=== PATIENT | female | born 2000 | race Asian ===

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

== ENCOUNTER 2023-09-11 00:07 | Inpatient (IN) | payer BC, OTHER ==
[2023-09-11] MEDS ORDERED: CARBOPROST TROMETHAMINE 250 MCG/ML 1 ML AMP IM PRN (01:28)
[2023-09-11] MEDS ORDERED: miSOPROStoL 200 MCG TAB PO PRN (01:28)
[2023-09-11] MEDS ORDERED: LIDOCAINE 0.5% (PF) 5 MG/ML (50 ML SDV) SQ PRN (01:28)
[2023-09-11] MEDS ORDERED: TERBUTALINE 1 MG/ML VIAL SQ PRN (01:28)
[2023-09-11] MEDS ORDERED: TRANEXAMIC 1,000 MG/100ML-NACL 1,000 MG in EMPTY BAG 1 BAG IV PRN (01:28)
[2023-09-11] MEDS ORDERED: OXYTOCIN 10 UNIT/ML 1 ML VIAL IM PRN (01:28)
[2023-09-11] MEDS ORDERED: NALBUPHINE 10 MG/ML (10 ML MDV) IV PRN (01:31)
[2023-09-11 01:46] LABS: Basophils % (A) 1 %; Eosinophils % (A) 1 %; HCT 33.5 % (34.0-46.0); Hypochromasia Slight; Lymphocytes # (A) 1.4 k/uL (1.0-4.8); Lymphocytes % (A) 29 %; MCH 25.1 pg (25.0-35.0); MCHC 32.8 g/dL (31.0-37.0); MCV 76.5 fL (80.0-100.0); Mean Platelet Volume 8.5; Microcytosis Slight; Monocytes # (A) 0.5 k/uL (0-1.0); Monocytes % (A) 10 %; Neutrophils # (A) 2.6 k/uL (1.3-7.7); Neutrophils % (A) 56 %; Platelet Count 231 k/uL (150-450); RBC 4.38 m/uL (3.80-5.40); WBC 4.6 k/uL (3.8-10.6)
[2023-09-11] MEDS: LACTATED RINGERS 1,000 ML IV SCH (01:54)
[2023-09-11] MEDS: AMPICILLIN 2,000 MG in SODIUM CHLORIDE 0.9% 100 ML IVPB ONE (02:04)
[2023-09-11 04:06] LABS: Amphetamine Screen,Urine Not Detected (NotDetected); Barbiturate Screen,Urine Not Detected (NotDetected); Benzodiazepines Screen,Urine Not Detected (NotDetected); Cocaine Screen,Urine Not Detected (NotDetected); Methadone Screen, Urine Not Detected (NotDetected); Opiate Screen,Urine Not Detected (NotDetected); Oxycodone Screen, Urine Not Detected (NotDetected); Phencyclidine Screen,Urine Not Detected (NotDetected); Tricyclic Antidepressant,Urine Not Detected (NotDetected); Urn Cannabinoid Scrn Detected (NotDetected)
[2023-09-11] MEDS: AMPICILLIN 1,000 MG in SODIUM CHLORIDE 0.9% 50 ML IVPB SCH (05:56)
[2023-09-11] MEDS: OXYTOCIN 30 UNITS/500 ML NS 30 UNIT in SALINE 1 500ML.BAG IV SCH (08:30)
[2023-09-11] MEDS ORDERED: LANOLIN CREAM 1 GM TUBE TOPICAL PRN (12:27)
[2023-09-11] MEDS ORDERED: diphenhydrAMINE 25 MG CAP PO PRN (12:27)
[2023-09-11] MEDS ORDERED: HYDROCORTISONE 2.5% RECTAL CREAM 30 GM TUBE RECTAL PRN (12:27)
[2023-09-11] MEDS ORDERED: diphenhydrAMINE 50 MG CAP PO PRN (12:27)
[2023-09-11] MEDS ORDERED: SIMETHICONE 80 MG CHEWABLE PO PRN (12:27)
[2023-09-11] MEDS ORDERED: diphenhydrAMINE 50 MG/ML 1 ML VIAL IVP PRN ×2 (12:27)
[2023-09-11] MEDS ORDERED: ZOLPIDEM 5 MG TAB PO PRN (12:27)
[2023-09-11] MEDS: METHYLERGONOVINE 0.2 MG/ML 1 ML AMP IM PRN (12:36)
[2023-09-11] MEDS: BENZOCAINE/MENTHOL SPRAY 1 GM/SPRAY AEROSOL TOPICAL PRN (12:36)
[2023-09-11] MEDS: IBUPROFEN 600 MG TAB PO SCH (15:46)
[2023-09-11] MEDS: ROPIVACAINE 225 MG, fentaNYL (PF). 450 MCG in SODIUM CHLORIDE 0.9% 171 ML EPIDURAL ONE (17:28)
--- NOTE | 2023-09-11 20:19 | P.PROBDLV ---
Vaginal Delivery Note - . Vaginal Delivery Note: Findings: Viable female delivered at 1213, weight of 6 pounds 10 ounces. This is a 23-year-old 1 para 0 that presented to labor and delivery last evening with complaints of regular painful contractions. Patient has an estimated due date of 09/19/2023, gestational age of 38-6/7 weeks. Patient was noted to be charu every 3 minutes and was uncomfortable with contractions. Patient stated contractions got worse through the day therefore she presented to the hospital. Patient was admitted to labor and delivery with expectant management. Patient had been receiving routine care which had been complicated by diagnosis of lupus. Patient did see maternal- medicine which recommended delivery at 39 weeks. Patient progressed to the night eventually becoming uncomfortable and requesting epidural. Epidural was placed without difficulty by the anesthesia department this morning. Patient progressed toward complete began pushing and had a normal spontaneous vaginal delivery of a viable female infant at 1213, weight of 6 pounds 10 ounces, Apgars of 9 and 9 at 1 and 5 minutes respectively. was delivered through a loose body cord. After 2-minute delay the umbilical cord was doubly clamped and cut. The was placed on the maternal abdomen. Cord blood was then taken. The placenta was delivered spontaneously intact with a three-vessel cord being noted. A large gush of bleeding was noted therefore Methergine was given the uterus firmed. The bladder was drained of clear yellow urine. On inspection the patient's vaginal vault first-degree vaginal laceration was appreciated. This was repaired in the usual fashion with 3-0 Rapide in a [id number] fashion. All counts were noted to be correct x 2 at the end of the delivery. Patient and tolerated delivery well and are resting comfortably.
[2023-09-11] MEDS: ACETAMINOPHEN TAB 325 MG TAB PO PRN (20:23)
[2023-09-11] MEDS: SENNOSIDES-DOCUSATE SODIUM 1 EACH TAB PO SCH (21:09)
--- NOTE | 2023-09-12 08:57 | P.PNOBGVD ---
Subjective - Subjective Principal diagnosis: day #1 Interval history: Patient is doing well . She is ambulating and voiding without difficulty. She is tolerating a regular diet without nausea or vomiting. States her lochia is minimal. She is breast-feeding with some difficulty. Patient reports: Reports appetite normal, Reports voiding normally, Reports pain well controlled, Reports ambulating normally : doing well, nursing well Objective - Latest Vital Signs Latest vital signs: Vital Signs Temp Pulse Resp BP Pulse Ox 09/12/23 04:17 98.5 F 73 16 109/70 97 09/12/23 00:00 98.7 F 77 16 116/81 98 09/11/23 20:00 98.0 F 77 16 128/89 98 09/11/23 15:04 97.2 F L 81 16 130/79 09/11/23 14:27 66 16 128/71 09/11/23 14:12 76 16 121/56 09/11/23 13:57 77 16 123/84 09/11/23 13:42 75 16 144/65 09/11/23 13:27 78 16 143/63 09/11/23 13:12 107 H 16 130/90 09/11/23 12:57 85 16 126/84 09/11/23 12:42 94 16 136/56 09/11/23 12:27 97.3 F L 94 16 120/68 Intake and Output 09/11/23 09/12/23 09/12/23 22:59 06:59 14:59 Intake Total 600 Output Total 190 Balance -190 600 Intake: Oral 600 Output: Output, Quantitative 190 Blood Loss Other: # Voids 1 1 - Exam Extremities: Present: normal, edema Abdomen: Present: normal appearance, soft Uterus: Present: normal, firm Assessment and Plan (1) Term Current Visit: Yes Status: Acute Code(s): Z34.90 - ENCNTR FOR SUPRVSN OF NORMAL , UNSP, UNSP TRIMESTER SNOMED Code(s): 06358515 (2) Lupus Current Visit: Yes Status: Acute Code(s): M32.9 - SYSTEMIC LUPUS ERYTHEMATOSUS, UNSPECIFIED SNOMED Code(s): 937635355 (3) Status post normal vaginal delivery Current Visit: Yes Status: Acute Code(s): VGI1588 - SNOMED Code(s): 343590254 (4) Obstetrical laceration, first degree Current Visit: Yes Status: Acute Code(s): O70.0 - FIRST DEGREE PERINEAL LACERATION DURING DELIVERY SNOMED Code(s): 35890549 Plan: 23-year-old G1 now P1 status postnormal spontaneous vaginal delivery. Patient is doing well . Discussed staying 1 more day to work on breast- feeding. Anticipate discharge home tomorrow
[2023-09-13 08:15] VITALS: BP 132/91; PULSE 72; RESP 16; TEMP 98.6
--- NOTE | 2023-09-13 12:35 | P.DS ---
Providers Date of admission: 09/11/23 00:34 Expected date of discharge: 09/13/23 Attending physician: Letty Mejia Primary care physician: Stated None - Discharge Diagnosis(es) (1) Term Current Visit: Yes Status: Acute (2) Lupus Current Visit: Yes Status: Acute (3) Status post normal vaginal delivery Current Visit: Yes Status: Acute (4) Obstetrical laceration, first degree Current Visit: Yes Status: Acute Hospital Course: 23-year-old G1 now P1 that presented to labor and delivery on 09/10 with complaints of regular painful contractions. Patient was admitted and made slow change through the evening. Patient had been receiving routine care with myself which was complicated by diagnosis of lupus. Patient did see maternal- medicine send and recommendation for delivery around 39 weeks was discussed. growth was appropriate testing was normal. Patient did become uncomfortable through the night and requested epidural in the morning. Patient underwent amniotomy with clear fluid obtained. Patient made good progress toward complete. Once completely dilated patient began pushing and had normal spontaneous vaginal delivery of a viable female infant at 1213, weight of 6 pounds 10 ounces. Apgars of 9 and 9 at 1 and 5 minutes respectively. Patient did sustain a first-degree vaginal laceration which was repaired in the usual fashion with 3-0 Rapide. Patient's course has been uneventful. On this day #2 she is ambulating and voiding without difficulty. She is tolerating a regular diet without nausea or vomiting. She states her pain is well-controlled. Plan discharge home. Bleeding precautions are reviewed. [id number] ibuprofen as needed for pain. She is to call the office to make a routine visit for 6 weeks. Patient Condition at Discharge: Good Plan - Discharge Summary New Discharge Prescriptions: No Action Hydroxychloroquine Sulfate [Plaquenil] 100 mg PO BID Discharge Medication List Hydroxychloroquine Sulfate [Plaquenil] 100 mg PO BID 09/11/23 [History] Follow up Appointment(s)/Referral(s): Letty Mejia DO [Doctor of Osteopathic Medicine] - 6 Weeks Patient Instructions/Handouts: Vaginal Delivery (DC), Vaginal Delivery (GEN) Activity/Diet/Wound Care/Special Instructions: No intercourse, tampons or douching. No heavy lifting greater than a gallon of milk. No driving for two weeks. Call with any fever, shakes or chills, with any pain not alleviated by over the counter meds, or with any questions or concerns. Discharge Disposition: HOME SELF-CARE
== END 2023-09-13 14:00 | disposition home or self-care (01) | DRG 807 ==
LOC: FBPOP 00:07 → 4FBP 00:34
PROVIDERS: ADMIT Obstetrics & Gynecology Obstetrics; ATTEND Obstetrics & Gynecology Obstetrics
PROC: 10E0XZZ Delivery of Products of Conception, External Approach (ICD-10-PCS; principal; 2023-09-11)
PROC: 0HQ9XZZ Repair Perineum Skin, External Approach (ICD-10-PCS; 2023-09-11)
PROC: 10907ZC Drainage of Amniotic Fluid, Therapeutic from Products of Conception, Via Natural or Artificial Opening (ICD-10-PCS; 2023-09-11)
DX: O99.892 Other specified diseases and conditions complicating childbirth (principal); Z37.0 Single live birth; M32.9 Systemic lupus erythematosus, unspecified; O70.0 First degree perineal laceration during delivery; Z3A.38 38 weeks gestation of pregnancy; Z87.891 Personal history of nicotine dependence; Z88.8 Allergy status to other drugs, medicaments and biological substances; Z91.048 Other nonmedicinal substance allergy status
CPT/HCPCS: 59025; 80306; 85025; 86850; 86900; 86901; 99213